=== PATIENT | female | born 1950 | race Caucasian/White ===

== ENCOUNTER 2023-06-13 07:58 | Day surgery (SDC) | payer OTHER ==
--- NOTE | 2023-06-10 17:52 | EKG ---
Test Date: 2023-06-09 Test Time: 12:29:43 Senior Water Resources Engineer: DELL MEASUREMENT RESULTS: Intervals: Rate: 61 HI: 146 QRSD: 102 QT: 418 QTc: 420 [place]: P: 34 HI: 146 QRS: 20 T: 41 INTERPRETIVE STATEMENTS: Normal sinus rhythm Normal ECG No previous ECG available for comparison Electronically Signed On 06-10-23 17:50:28 ATOMIC PHYSICS TEACHER by Vinicius Mann
[2023-06-13] MEDS ORDERED: Ringers Lactate 1,000 ML IV ONE (08:07)
[2023-06-13 08:40] LABS: Absolute Lymphocytes (CBC) 1.9 K/uL (0.7-4.9); Hematocrit 41.4 % (36.0-45.0); Lymphocytes % 25.8 % (15.3-44.8); MCV 97.4 fL (80-100); MPV 7.2 fL (7.6-11.3); Platelets 306 thou/uL (152-406); RBC Red Blood Cell Count 4.25 M/uL (3.86-4.86)
[2023-06-13] MEDS: OXYMETAZOLINE HCL 0.05% 15ML NAS ONE ×4 (08:40→10:53)
[2023-06-13 08:55] LABS: Potassium 3.6 mEq/L (3.5-5.1)
[2023-06-13] MEDS ORDERED: propofoL 200 MG/20 ML VIAL IV ONE (09:57)
[2023-06-13] MEDS ORDERED: FENTANYL CITR 100 MCG/2 ML ONE (09:57)
[2023-06-13] MEDS ORDERED: KETOROLAC 30 MG/ML INJ ONE (09:57)
[2023-06-13] MEDS ORDERED: dexAMETHasone 10 MG/ML VIAL ONE (09:57)
[2023-06-13] MEDS ORDERED: ONDANSETRON 4 MG/2 ML VIAL ONE (09:57)
[2023-06-13] MEDS ORDERED: MIDAZOLAM HCL 2 MG/2 ML INJ ONE (09:57)
[2023-06-13] MEDS ORDERED: ROCURONIUM 50 MG/5 ML VIAL IV ONE (09:57)
[2023-06-13] MEDS ORDERED: LIDOCAINE 2% MPF 5 ML VIAL ONE (09:57)
[2023-06-13] MEDS ORDERED: OXYMETAZOLINE HCL 0.05% 15ML NAS ONE (10:06)
[2023-06-13] MEDS ORDERED: LIDOCAINE HCL/EPINEPHRINE 20 ML MDV ONE (10:07)
[2023-06-13] MEDS ORDERED: BACITRACIN OINTMENT 14 GM TUBE TOP ONE (10:07)
--- NOTE | 2023-06-13 11:51 | P.OP ---
Radiology Interventional Physician: NONE,NONE Preoperative diagnosis: deviated septum, turbinate hypertrophy, mixed hearing loss bilateral Postoperative diagnosis: same Primary procedure: septoplasty Secondary procedure: submucosal turbinate ablation with cautery Other procedure(s): nasal endoscopy with bilateral eustachian tube dilation Anesthesia: general Estimated blood loss: 30ml Specimen: bone and cartilage from septum Findings: good dilation, prominant right septal spur Operative Technique: Patient was brought to the operating placed under general anesthesia. The head of bed was turned 90 degrees. The 0 degree endoscope was used to perform a nasal endoscopy. The inferior turbinates were noted to be enlarged. There was a prominent right-sided septal spur. The middle turbinate and middle meatus were unremarkable. The sphenoethmoid recess was unremarkable. The choana demonstrated minimal residual adenoid tissue. The eustachian tube openings were visualized and appeared to be obstructed with soft edema. The Acclarent aerobe balloon was passed under 30 degree endoscopic guidance through the left nasal cavity and into the nasopharynx. The tip was angled in an upward lateral position and the balloon was easily advanced into the cartilaginous portion of the eustachian tube until it was completely inserted. The balloon was then slowly inflated to 1 rhonda of pressure. The balloon appeared to be in good position. The pressure was then increased to 2 rhonda. The balloon continued to be in good position and the pressure was increased to 10 rhonda and was held for 90 seconds then dilated and gently removed. There was no evidence of immediate complication. The balloon device was then repositioned and advanced along the floor of the right nasal cavity. There was mild difficulty advancing the camera around the balloon due to narrowing of the nasal cavity from the right septal spur. The camera was advanced up above the spur allowing visualization of the nasopharynx and the balloon device was passed with minimal resistance in an superior lateral position into the eustachian tube. The balloon was slowly increased to 1 and then 2 rhonda of pressure and appeared to be in good position. The balloon was then inflated to a pressure of 10 rhonda and held for 90 seconds. The balloon was then deflated and withdrawn. There was no evidence of immediate complication from the dilation. The nasal cavity was then inspected using a headlight and the septum was injected with 1% lidocaine with epinephrine. A total of 5 mL was used. A modified Travis incision was made in the right septal mucosa and advanced posteriorly along the crest of the spur. A caudal elevator was used to elevate mucosal flap along the right septum isolating the cartilaginous and bony spur. A 15 blade scalpel was used to incise the cartilaginous portion of the spur. The caudal elevator was used to elevate the left septal mucosal after dividing the bony cartilaginous junction on the inferior aspect of the septum. This allowed passage of angled scissors along the superior aspect of the bony spur. Using scissors and Frank rongeurs bony fragments were divided and removed until the septal spur was adequately reduced. Afrin-soaked pledgets were packed into the right nasal cavity along the flap and cut edges of the bone for several minutes to aid in hemostasis. After removal bleeding appeared to be minimal. The flap was repositioned and secured using 5-0 fast-absorbing gut sutures along the anterior aspect of the incision. The more posterior aspect was left open due to location. The needlepoint electrocautery was passed in to the superior, mid, and inferior portion of the right and left middle turbinate and activated for approximately 10 seconds to perform submucosal ablation of the excessive soft tissue and reduce the overall size of the turbinates. Bleeding was minimal. The nasal cavity was then thoroughly irrigated and suctioned. A dissolvable PosiSep nasal dressing was placed within the right and left nasal cavity and thoroughly soaked with saline. An orogastric tube was passed for removal of stomach contents and the oral cavity and oropharynx were carefully examined. There is no evidence of bleeding noted to be coming from the nasopharynx. The procedure was then concluded the patient was returned to care of anesthesia for awakening extubation in the operating room which proceeded without difficulty. The patient will be discharged home later today and follow-up with Dr. Apple's office in approximately 1 to 2 weeks. Patient's family is instructed in regards to nasal precautions and a prescription for 12 tablets of tramadol 50 mg is sent to the patient's pharmacy. The family is instructed to contact Dr. Apple's office if her refills necessary. Complications: None Implants: nasal cavity with Posisep Fluids & blood products: crystalloid per anesthesia record Transferred to: Recovery Room Condition: Good
[2023-06-13 12:30] VITALS: O2SAT 98
[2023-06-13] MEDS ORDERED: TRAMADOL HCL 50 MG TAB ONE (12:42)
[2023-06-13 13:26] VITALS: BP 153/80; TEMP 97.2
== END 2023-06-13 13:08 | disposition home or self-care (01) ==
LOC: OR 07:58
PROVIDERS: ATTEND Otolaryngology
PROC: 097G8ZZ Dilation of Left Eustachian Tube, Via Natural or Artificial Opening Endoscopic (ICD-10-PCS; 2023-06-13)
PROC: 097F8ZZ Dilation of Right Eustachian Tube, Via Natural or Artificial Opening Endoscopic (ICD-10-PCS; 2023-06-13)
PROC: 09SM4ZZ Reposition Nasal Septum, Percutaneous Endoscopic Approach (ICD-10-PCS; principal; 2023-06-13 09:15)
DX: J34.2 Deviated nasal septum (principal); H90.6 Mixed conductive and sensorineural hearing loss, bilateral; J34.3 Hypertrophy of nasal turbinates
CPT/HCPCS: 93005; 85025; 80048; 36415; 88300; 30520; 30802; 69706; J2704; J2001; J2250; J3010; J1100; J2405; J7120